=== PATIENT | female | born 1955 | race Caucasian/White ===

== ENCOUNTER → 2018-07-03 | Outpatient (REF) ==
[~2018-07-03] MED LIST: CHOL100052 PO; ESTR-33 PO; ESTR-42 PO; IBUP-136 PO; LEVO75TA68 PO; LIO5 PO; LISI-362 PO; LUTE6TAB PO; METXR500 PO; OMEG300C PO; ROS10 PO; ROSU20TA23 PO; UBID300C3 PO; UBID30CA27 PO
[2018-07-03 10:42] LABS: LDL CHOLESTEROL 66 mg/dl
== END ==
DX: Z02.9 Encounter for administrative examinations, unspecified (principal)

== ENCOUNTER → 2018-07-03 | Outpatient (CLI) | payer OTHER | LOC: LAB 09:51 | PROVIDERS: ATTEND Obstetrics & Gynecology | DX: E03.9 Hypothyroidism, unspecified (principal); R53.83 Other fatigue; R63.5 Abnormal weight gain; M25.50 Pain in unspecified joint; L65.9 Nonscarring hair loss, unspecified; R41.3 Other amnesia; Z86.79 Personal history of other diseases of the circulatory system | CPT/HCPCS: 36415; 82306; 82607; 82670; 83001; 84403; 84436; 84481; 86376 ==

== ENCOUNTER → 2018-09-09 | Outpatient (CLI) | payer OTHER ==
--- NOTE | 2018-09-09 13:55 | RADIOLOGY IMAGING REPORT ---
FACILITY: [facility] - [place] PATIENT NAME: Nikky Barbosa : 1955 MR: [id number] V: [id number] EXAM DATE: ORDERING PHYSICIAN: CRISTOBAL RUTLEDGE TECHNOLOGIST: Location: [facility] - [place] Patient: Nikky Barbosa : 1955 Visit/Account:[id number] Date of Sevice: 09/09/2018 DEXA Scan Clinical history: Osteopenia. Comparison: None available. LUMBAR SPINE: The bone mineral density (BMD) measured from L1-L4 correlates with a Z-score 2.0 and a T-score of 0.7 which is Normal as defined by the World Health Organization. The corresponding risk of fracture in the lumbar spine is Not increased compared with a young adult reference population. HIP: Bone mineral density (BMD) measured in the left femoral neck region correlates with a Z-score 0.0 and a T-score of -1.3 which is osteopenia as defined by the World Health Organization. The correspondin g risk of fracture in the hip is increased compared with a young adult reference population. Bone mineral density (BMD) measured in the Femoral Neck region measures 0.863 g/cm2. Impression: 1. Lumbar spine: Normal. 2. Left femoral neck region: Osteopenia. 3. Femoral Neck: Bone Mineral Density is 0.863 g/cm2 The next DEXA scan of this patient should include the following sites: L1-L4 and the left hip. FRAX? WHO Fracture Risk Assessment Tool link: <http://www.shef.ac.uk/FRAX/tool.jsp?locationValue=9> PLEASE NOTE: 1) The World Health Organization defines low BMD as follows: T-score Normal > -1 Osteopenia < -1 and > -2.5 Osteoporosis < -2.5 without fractures Established osteoporosis < -2.5 with fractures 2) In general, you may wish to consider: Diagnosis Treatment Follow-up DEXA Normal BMD Prevention 2-3 years Osteopenia Prevention/therapy 1-2 years Osteoporosis Therapy Yearly 3) Fracture risk estimated from the T-score is more accurate for vertebral fractures (often spontane ous) than for hip fractures. Report Dictated By: Kemal Lewis at 09/09/2018 1:47 PM Report E-Signed By: Kemal Lewis at 09/09/2018 1:49 PM WSN:[email or web address]
== END ==
LOC: RAD 13:00
PROVIDERS: ATTEND Internal Medicine
DX: M85.88 Other specified disorders of bone density and structure, other site (principal)
CPT/HCPCS: 77080

== ENCOUNTER 2018-09-23 09:00 | Outpatient (RCR) | payer OTHER ==
--- NOTE | 2018-09-08 11:59 | PT INITIAL EVALUATION ---
MEDICAL DIAGNOSIS: G56.01 Carpal Tunnel Syndrome, R upper limb TREATMENT DIAGNOSIS: Same DATE OF ONSET: 07/04/18 SUBJECTIVE: Nikky Barbosa presents to PT for scar mobilization and hand strengthening after R CTR. She's right-handed. She reports R median nerve distribution numbness at her R thumb, 2nd, 3rd finger and palm. Quick DASH 30% impairment. She reports she can't open tight jar lids, carrying heavy items is hard. Pain location is R thumb, 2nd, 3rd fingers and palm and described as moderate numbness, tenderness. Pain scale is 2 on a ten point pain scale. Pain is worse with gripping, carrying and better with ice. REHAB PROBLEM LIST: Increased Pain, Decreased Lactation Nurse Strength, Decreased Carpal Mobility PREVIOUS MEDICAL HISTORY: Benign HTN, DM, hyperlipidemia, hypothyroidism, appendectomy, hysterectomy, viral syndrome. 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 OBJECTIVE: ROM: R hand and wrist AROM WNL. Strength: Lactation Nurse strength, Chato dynamometer, 2nd slot: R 30, 38, 39#, L 54, 55, 55#. R chief medical technologist is two standard deviations below the normal and L is one standard deviation above the norm for a 62 y/o woman. Palpation: Moderate scar tissue at the carpal tunnel incision extending into the palm. Normal color at the hand. Sensation: Emerson-Jonathan monofilament testing: R median nerve at [facility] hand "G" 3.84, reduced protective sensation. Special Tests: Negative L ULTT median nerve, negative Tinel tap at the carpal tunnel. Mobility: Hypomobile R wrist carpals. ASSESSMENT: Nikky Barbosa presents with scar tissue impairing the median nerve at the carpal tunnel, weak chief medical technologist, 30% impairment in R hand function, reduced sensation. She did well with scar mobilization today. Short Term Goals/Patient's Goals 3 weeks: Nikky has protective sensation at her R hand median nerve distribution, chief medical technologist strength improved 10%. PLAN: Patient to be seen for Manual Therapy, Strengthening/condition, Stretching, Home Exercise Program for 3x/Week for 3 weeks Thank you for this referral. If you have any questions, comments, or concerns about this report or plan, please contact me at . JORGED
--- NOTE | 2018-09-24 10:03 | PT PLAN OF CARE ---
Physician: Dr. Bryant Hermosillo Patient is being seen: 3x/week Therapist: Olive Vitale, PT Medical Diagnosis: G56.01 Carpal Tunnel Syndrome, R upper limb Treatment Diagnosis: Same Date of Onset: 07/04/18 Date of Initial Evaluation: 09/08/18 Date patient was last seen: 09/23/18 Number of treatments: 7 Number of cancellations/No shows: 0 INTERVENTIONS: Manual Therapy, Strengthening, Stretching, Home Exercise Program GOALS/PATIENT'S GOAL: 3 weeks: Nikky has protective sensation at her R hand median nerve distribution (met), molded goods spot picker strength improved 10% (met). Patient Compliance: Excellent Prognosis: Excellent Reasons for discontinuing therapy: S: Nikky reports her R hand paresthesia is 50% better and that she's doing her HEP. O: ROM: R hand and wrist AROM WNL. Strength: Mailroom Associate strength, Chato dynamometer, 2nd slot: R 60, 60, 55#, average 58#, within 1 SD of mean, L 80, 82, 78#, average 80#, 4 SD above norm. Palpation: Mobilized scar tissue at the carpal tunnel incision extending into the palm. Sensation: Improved sensation from reduced protective sensation to reduced light touch "F" 3.61, S[place]im[place]-Jonathan monofilament testing. A/P: Nikky Barbosa has improved sensation, molded goods spot picker strength and mobilized scar tissue well. I'll DC PT to HEP, including self-mobilizing techniques. Thank you. SARAH
== END 2018-09-23 18:00 | disposition home or self-care (01) ==
LOC: PT 09:00
PROVIDERS: ATTEND Orthopaedic Surgery Hand Surgery
DX: Z48.89 Encounter for other specified surgical aftercare (principal); G56.01 Carpal tunnel syndrome, right upper limb; I10 Essential (primary) hypertension; E11.9 Type 2 diabetes mellitus without complications; E03.9 Hypothyroidism, unspecified; E78.5 Hyperlipidemia, unspecified
CPT/HCPCS: 97161